=== PATIENT | female | born 1985 | race Caucasian/White ===

== ENCOUNTER 2022-04-29 07:29 | Day surgery (SDC) | payer MEDICAID ==
[~2022-04-29] VITALS: Ht 162.6 cm; Wt 104.3 kg
[2022-04-29] MEDS ORDERED: ROCURONIUM BROMIDE 10 MG/ML (ZEMURON) IV ONE (08:16)
[2022-04-29] MEDS ORDERED: PROPOFOL 200MG/ 20ML VIAL (DIPRIVAN) IV ONE (08:16)
[2022-04-29] MEDS ORDERED: SUCCINYLCHOLINE CHLORIDE 20 MG/ML(QUELICIN) IVP ONE (08:16)
[2022-04-29] MEDS ORDERED: DEXAMETHASONE SOD PHOSPHATE 4 MG/ML VIAL IVP ONE (08:16)
[2022-04-29] MEDS ORDERED: SEVOFLURANE 15 MIN GAS INH ONE (08:16)
[2022-04-29] MEDS ORDERED: ONDANSETRON HCL 4 MG/2 ML VIAL IVP ONE (08:16)
[2022-04-29 08:25] LABS: HCG,QUAL RESULT NEGATIVE (NEGATIVE)
[2022-04-29] MEDS ORDERED: HYDROmorphone 1 MG/ML INJ. CARTRIDGE IVP PRN (10:45)
[2022-04-29] MEDS ORDERED: LR 1,000 ML IV SCH (10:45)
[2022-04-29] MEDS ORDERED: LABETALOL 100 MG/ 20ML VIAL IVP PRN (10:45)
[2022-04-29] MEDS ORDERED: hydrALAZINE HCL 20 MG/ML VIAL IVP PRN (10:45)
[2022-04-29] MEDS ORDERED: HYDROmorphone 1 MG/ML INJ. CARTRIDGE ONE ×2 (10:55→11:54)
[2022-04-29] MEDS ORDERED: ONDANSETRON HCL 4 MG/2 ML VIAL IVP PRN (11:30)
[2022-04-29] MEDS ORDERED: ONDANSETRON 4 MG ODT TAB PO PRN (11:30)
[2022-04-29] MEDS ORDERED: HYDROcodone/ACETAMIN 5-325 MG TAB (NORCO/ VICODIN) PO PRN (11:30)
[2022-04-29 13:25] VITALS: BP_SYST 124
== END 2022-04-29 13:20 | disposition home or self-care (01) ==
LOC: SDS 07:29 → SMU 07:30 → SDS 13:20
PROVIDERS: ATTEND Otolaryngology
DX: J35.01 Chronic tonsillitis (principal); J45.909 Unspecified asthma, uncomplicated; E66.01 Morbid (severe) obesity due to excess calories; Z20.822 Contact with and (suspected) exposure to COVID-19
CPT/HCPCS: 36415; 87426; 42826; 84703; 88304; J1100; J2405; J2704; J0330; J1170